=== PATIENT | female | born 1945 | race Caucasian/White ===

== ENCOUNTER 2020-01-08 18:33 | Inpatient (IN) | payer OTHER ==
[~2020-01-08] VITALS: Ht 152.4 cm; Wt 55.7 kg
[2020-01-08] MEDS ORDERED: ACET325 PO (18:45)
[2020-01-08 19:15] LABS: BASOPHILS ABSOLUTE AUTO 0.02 K/mm3 (0.00-0.23); BASOPHILS PERCENT AUTO 1 % (0-2); EOSINOPHILS PERCENT AUTO 0 % (0-6); Hematocrit 43.3 % (33.0-51.0); Hemoglobin 12.9 g/dL (11.5-16.0); IMMATURE GRAN PERCENT AUTO 0 % (0-1); LYMPHOCYTES ABSOLUTE AUTO 0.47 K/mm3 (0.84-5.20); LYMPHOCYTES PERCENT AUTO 11 % (21-46); MONOCYTES ABSOLUTE AUTO 0.51 K/mm3 (0.16-1.47); MONOCYTES PERCENT AUTO 12 % (4-13); Mean Corpuscular HGB 26.3 pg (26.0-34.0); Mean Corpuscular HGB Conc 29.8 g/dL (31.5-36.5); Mean Corpuscular Volume 88 fL (80-100); Mean Platelet Volume 10.2 fL (9.1-12.4); NEUTROPHILS ABSOLUTE AUTO 3.13 K/mm3 (1.96-9.15); NEUTROPHILS PERCENT AUTO 76 % (41-73); Platelet Count 169 K/mm3 (150-400); RDW Coefficient Variation 15.9 % (11.7-14.2); RDW Standard Deviation 51.9 fL (35.1-46.3); Red Blood Cell Count 4.91 M/mm3 (3.80-5.20); White Blood Cell Count 4.13 K/mm3 (4.00-11.30)
[2020-01-08 19:50] LABS: Alanine Aminotransfer (ALT/SGP 18 U/L (12-78); Albumin, Blood 3.1 g/dL (3.4-5.0); Albumin/Globulin Ratio 0.9 (0.8-1.8); Alk Phos 87 U/L (50-136); Anion Gap 5 mmol/L (6-16); Aspartate Aminotrans (AST/SGOT 21 U/L (12-37); Bilirubin, Total 0.4 mg/dL (0.1-1.0); Blood Urea Nitrogen 21 mg/dL (8-24); Bun/Creatinine Ratio 33.1 (12.0-20.0); CO2, Blood 26 mmol/L (21-32); Calcium, Blood 8.7 mg/dL (8.5-10.1); Chloride, Blood 105 mmol/L (98-108); Creatinine, Blood 0.63 mg/dL (0.40-1.00); Free Thyroxine 0.94 ng/dL (0.70-1.60); Globulin, Blood 3.6 g/dL (2.2-4.0); Glomerular Filtration Rate >60 (60-); Glucose, Blood 134 mg/dL (70-99); Potassium, Blood 3.8 mmol/L (3.5-5.5); Sodium, Blood 136 mmol/L (136-145); Total Protein, Blood 6.7 g/dL (6.4-8.2)
--- NOTE | 2020-01-09 04:12 | NUR ---
SHIFT SUMMARY ADMITTED FOR FACIAL CELLULITS (LEFT SIDE), ALSO HAS A THYROID GOITER. DNR CODE. REGULAR DIET, 1 ASSIST TO BATHROOM, 2 LPM O2 HERE SHE WAS DESATURATING W/AMBULATION, RA AT HOME, SHE USES A FWW AT HOME. SHE WILL SEE CONSULT DR EVANS FOR THE GOITER OUTPT. HERE SHE WILL RECEIVE IV ANTIBIOTICS FOR THE CELLULITIS. SHE IS FROM [facility]. SHE TALKS VERY FAST BUT APPEARS TO BE ORIENTED. HX: SHORT TERM MEMORY LOSS, MEDIASTINAL MASS, SINUSITIS, NON-HODGKINS LYMPHOMA, MITRAL VALVE PROLAPSE. SHE REPORTS SHE IS DRAINING FROM HER LEFT EAR SINCE YESTERDAY.
--- NOTE | 2020-01-09 17:44 | NUR ---
a+o, asphasic/difficult speech, worried about male nurse assessing her so had foot specialist assist, red spots noted and reported to hospitalist, l side of face swollen and painful (hair more than face/skin), easily startled, sba to bathroom to help manage iv hoses, call light in reach, bed in low position rm air, lc infusing at 125, abx also infusing
--- NOTE | 2020-01-10 04:45 | NUR ---
SHIFT SUMMARY PATIENT'S FACE ON THE LEFT SIDE IS VERY SWOLLEN, IS UNABLE TO OPEN HER LEFT EYE. PATIENT WAS ABLE TO SLEEP MOST OF THE NIGHT ASIDE FROM WHEN SHE GOT UP TO THE BATHROOM. IV PATENT AND FLUSHED. BED IN LOWEST POSITION WITH WHEELS LOCKED. CALL LIGHT WITHIN REACH. REPORT GIVEN TO ONCOMING RN.
--- NOTE | 2020-01-10 06:23 | NUR ---
PHYSICIAN COMMUNICATION CONTACTED THE WELDER PLASTIC PHYSICIAN, DR NEVAREZ, TO ASK OF THE PATIENT TO HAVE AN ORDER FOR A 250 ML KVO BAG OF NS TO FLUSH HER IV ANTIBIOTICS. DR NEVAREZ SAID YES TO THE ORDER.
--- NOTE | 2020-01-10 16:34 | NUR ---
SHIFT SUMMARY PT FACIAL SWELLING HAS GONE DOWN THROUGHOUT THIS SHIFT. PT TOLERATING LYING ON HER R SIDE TO HELP WITH SWELLING. PT AMBULATING TO BATHROOM WITH MINIMAL ASSIST. NEW IV PLACED TO RFA. NO OTHER ACUTE CHANGES IN ASSESSMENT AT THIS TIME. INTERMITTEN FEVER TREATED WITH TYLENOL. SENA AT [facility] UPDATED ON PT CONDITION. WILL CONTINUE TO MONITOR UNTIL TURNOVER IS COMPLETE.
--- NOTE | 2020-01-11 05:42 | NUR ---
SHIFT SUMMARY PATIENT ALERT AND ORIENTED OVERNIGHT. ALTHOUGH HARD TO UNDERSTAND WITH HER GARBLED SPEECH. SHE IS ABLE TO MAKE HER NEEDS KNOWN. PATIENT ENCOURAGED TO SLEEP ON HER RIGHT SIDE TO HELP REDUCE FLUID ACCUMULATION AROUND HER LEFT EYE, WHICH HAS BEEN EFFECTIVE. IV PATENT AND FLUSHED. BED IN LOWEST POSITION WITH WHEELS LOCKED AND ALARM ON. CALL LIGHT WITHIN REACH. REPORT GIVEN TO ONCOMING RN.
--- NOTE | 2020-01-11 15:53 | NUR ---
REPORT GIVEN TO DASH GR WHO ASSUMED CARE AT ABOUT 1500. SHIFT SUMMARY PT AXO, PLEASANT AND COOPERATIVE WITH CARE THOUGH DIFFUCULT TO DISCERN SPEECH AT TIMES. IV ACCESS LOST X2 THIS MORNING AND ANTIBIOTIC LATE THEN RETIMED, SEE NOV. IV PATENT AND SALINE LOCKED AT THIS TIME. PT DENIES PAIN, SOB AND N/V. BED IN LOW POSITION, CALL LIGHT WITHIN REACH.
--- NOTE | 2020-01-11 17:29 | NUR ---
SHIFT SUMMARY PICTURES TAKEN OF PATIENTS FACE AND L EAR/NECK TO HELP WITH COMPARRISONS OF SWELLING AND ABCESS. NO ACUTE CHANGES FROM PREVIOUS RNS ASSESSMENT. VSS. TYLENOL GIVEN TO ASSIST WITH PTS DISCOMFORT AND SWELLING. WILL CONTINUE TO MONITOR UNTIL TURNOVER IS COMPLETE.
--- NOTE | 2020-01-11 19:48 | NUR ---
ASSUMED CARE OF THE PATIENT. CRUZ IS AOX3 WITH A SLIGHT MENTAL DELAY. SHE IS ABLE TO ANSWER QUESITONS WITH NO PROBLEMS. SPEECH IS GARBLED AT TIMES AND DIFFICULT TO UNDERSTAND. ABLE TO GET 70% OF WHAT SHE IS TRYING TO SAY. SOMETIMES SHE JUST REPEATS THINGS. LEFT SIDE OF FACE SWELLING, RED, WITH LESIONS ACROSS HER CHEEK, AROUND HER EAR, DOWN HER NECK AND ON THE FRONT OF THE NECK. LESIONS YELLOW AND SOME APPEAR OPEN AROUND THE EAR. LEFT EAR IS DRAINING YELLOW FLUID. RASH WITH RED RAISED BLISTERS ALL OVER THE BODY, NON-ITCHY, NON-PAINFUL. STATES SHE CAN SWALLOW OK, NO DIFFICULTY IN BREATHING. ABLE TO EAT OK. ANTIBOTICS STARTED. MED GIVEN IN APPLESAUCE. ATTENDS DRY. CALL LIGHT IN REACH.
--- NOTE | 2020-01-11 21:40 | NUR ---
IV SL. REPOSITIONED UP IN BED. WATER GIVEN. DENIED NEED TO GO TO THE BATHROOM. CALL LIGHT GIVEN BED ALARM ON.
--- NOTE | 2020-01-12 00:39 | NUR ---
ASSISTED TO THE BATHROOM, SBA WITH WALKER. 1 UNMEASURED VOID. CHANGED ATTENDS DUE TO SLIGHTLY WET. RASH EVEN ON BOTTOM AND INNER THIGH AREA. ASSISTED BACK IN BED. NO NEEDS NOTED. CALL LIGHT GIVEN. BED ALARM ON
--- NOTE | 2020-01-12 00:51 | NUR ---
RETURNED CALL TO PIETER AT [facility] WHO IS ONE OF THE CARETAKERS. CRUZ GAVE PERMISSION TO SPEAK TO HER. GAVE UPDATE ON CRUZ'S PROGNOSIS. PIETER SAID SHE CAN'T WAIT FOR HER TO GET BACK.
--- NOTE | 2020-01-12 03:42 | NUR ---
LAB IN THE ROOM WITH THE PATIENT.
[2020-01-12 04:34] LABS: Hematocrit 41.2 % (33.0-51.0); Hemoglobin 12.9 g/dL (11.5-16.0); Mean Corpuscular HGB 26.4 pg (26.0-34.0); Mean Corpuscular HGB Conc 31.3 g/dL (31.5-36.5); Mean Platelet Volume 11.2 fL (9.1-12.4); Platelet Count 149 K/mm3 (150-400); RDW Coefficient Variation 15.5 % (11.7-14.2); RDW Standard Deviation 47.8 fL (35.1-46.3); Red Blood Cell Count 4.89 M/mm3 (3.80-5.20); White Blood Cell Count 4.83 K/mm3 (4.00-11.30)
[2020-01-12 04:36] LABS: Mean Corpuscular Volume 84 fL (80-100)
[2020-01-12 04:53] LABS: Anion Gap 6 mmol/L (6-16); Blood Urea Nitrogen 14 mg/dL (8-24); Bun/Creatinine Ratio 24.2 (12.0-20.0); CO2, Blood 31 mmol/L (21-32); Chloride, Blood 97 mmol/L (98-108); Creatinine, Blood 0.58 mg/dL (0.40-1.00); Glomerular Filtration Rate >60 (60-); Glucose, Blood 84 mg/dL (70-99); Potassium, Blood 3.1 mmol/L (3.5-5.5); Sodium, Blood 134 mmol/L (136-145)
[2020-01-12 05:24] LABS: BASOPHILS PERCENT MAN 0 % (0-2); EOSINOPHILS ABSOLUTE MAN 0.09 K/mm3 (0.00-0.68); EOSINOPHILS PERCENT MAN 2 % (0-6); LYMPHOCYTES ABSOLUTE MAN 0.86 K/mm3 (0.84-5.20); LYMPHOCYTES PERCENT MAN 18 % (21-46); MONOCYTES ABSOLUTE MAN 0.48 K/mm3 (0.16-1.47); MONOCYTES PERCENT MAN 10 % (4-13); NEUTROPHILS ABSOLUTE MAN 3.38 K/mm3 (1.96-9.15); SEG NEUTROPHILS PERCENT MAN 70 % (41-73); TOTAL CELLS COUNTED 100
--- NOTE | 2020-01-12 05:24 | NUR ---
SHIFT SUMMARY: CRUZ HAS BEEN STABLE THROUGHOUT THE NIGHT. LESIONS TO LEFT SIDE OF FACE/NECK/EAR IS UNCHANGED. RASH IS STILL PRESENT TO ENTIRE BODY WITH RED/WHITE BUMPS. LESIONS ARE SLIGHTLY OPEN BUT NO DRAINAGE. SWELLING STILL PRESENT IN LEFT SIDE OF FACE AND EAR. EAR DRAINING YELLOW FLUID. DENIES SOB, DIFFICULTY SWALLOWING. ABLE TO GET UP WITH SBA AND WALKER TO THE BATHROOM. IV REMAINED PATENT. MEDS PER EMAR. STAPLETON AT [facility] UPDATED ON STATUS, PER CRUZ'S REQUEST. VS STABLE, FEBRILE MILD AT 99. NO OTHER ACUTE CHANGES THIS SHIFT. WILL CONTINUE TO MONITOR TILL SHIFT CHANGE. CALL LIGHT IN REACH, BED ALARM ON.
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
--- NOTE | 2020-01-12 18:49 | NUR ---
SHIFT SUMMARY PT 1 PERSON ASSIST TO THE BATHROOM. R INNER THIGH WITH REDNESS AND SWELLING AND TENDERNESS TO TOUCH. NO DRAINAGE AT THIS TIME. DR. HERNÁNDEZ IN TO SEE PT THIS MORNING AND STATED HE FELT TREATING IT WITH ANTIBIOTICS SHOULD BE ENOUGH FOR NOW. PT SLEEPING ON AND OFF MOST OF THE DAY.
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
[2020-01-13 07:19] LABS: Anion Gap 5 mmol/L (6-16); Blood Urea Nitrogen 12 mg/dL (8-24); Bun/Creatinine Ratio 20.7 (12.0-20.0); CO2, Blood 32 mmol/L (21-32); Calcium, Blood 8.2 mg/dL (8.5-10.1); Chloride, Blood 101 mmol/L (98-108); Creatinine, Blood 0.58 mg/dL (0.40-1.00); Glomerular Filtration Rate >60 (60-); Glucose, Blood 99 mg/dL (70-99); Magnesium, Blood 1.8 mg/dL (1.6-2.4); Potassium, Blood 3.6 mmol/L (3.5-5.5); Sodium, Blood 138 mmol/L (136-145)
--- NOTE | 2020-01-13 16:23 | NUR ---
SHIFT SUMMARY PATIENT DENIES PAIN, NAUSEA, AND SHORTNESS OF BREATH. PATIENT UP SBA TO BATHROOM. BLOOD AND WOUND CULTURES TAKEN TODAY. POWERGLIDE DRESSING CHANGED. CT OF FACE AND NECK DONE TODAY. PATIENT RESTING AND WATCHING TV THIS SHIFT. UP ON SIDE OF BED FOR MEALS. CALL LIGHT IN REACH.
--- NOTE | 2020-01-13 16:35 | NUR ---
Spiritual care note: Julieta's speech was more difficult to understand today. She appeared tired and told me she misses being around her friends. I provided companionship and conversation. Assured Julieta of excellent care and attention. I will remain available.
--- NOTE | 2020-01-14 04:03 | NUR ---
SHIFT SUMMARY PATIENT HAD NO ACUTE CHANGES OBSERVED. AIRBORNE PRECAUTIONS. AXOX 2 WITH CONFUSION AND GARBLED SPEECH. ONE ASSIST WITH FWW TO BR. VSS/AFEBRILE. POWERGLIDE HANNA INTACT. IV ABX'S INFUSED. DENIES PAIN, SOB, AND N/V. CALL LIGHT IN REACH. BED IN LOWEST POSITION. WILL CONTINUE TO MONITOR UNTIL DAY SHIFT NURSE ASSUMES CARE.
--- NOTE | 2020-01-14 17:34 | NUR ---
SHIFT SUMMARY. A&OX2-3, INTERMITTENT CONFUSION, SPEECH DIFFICULT TO UNDERSTAND AT TIMES. SBA TO BATHROOM WITH FWW. BED ALARM UTILIZED FOR SAFETY, PT USED CALL LIGHT APPROPRIATLY THIS SHIFT. PT DENIES PAIN, SOB, N/V. OPEN LESIONS TO EAR AND BEHIND L EAR CLEANSED WITH WOUND CLEANSER, PT HAIR WASHED BY TAN ROOM SUPERVISOR DRAINAGE FROM LESION WAS MODERATE. NO NEW CHANGES OR CONCERNS.
--- NOTE | 2020-01-15 04:02 | NUR ---
SHIFT SUMMARY A/O, ABLE TO MAKE NEEDS KNOWN. SPEECH IMPAIRED WITH GARBLED FAST PACED SENTENCEDS; DIFFICULT TO UNDERSTAND AT TIMES. CALLS AND ANSWERS QUESTIONS APPROPRIATELY. NO C/O PAIN/DISCOMFORT. SCABS APPEAR TO BE CRUSTING OVER ON L FACE/NECK. 1P ASSIST /c FWW TO BATHROOM; GAIT SLOW YET STEADY. VSS A LITTLE TACHYCARDIC. NO OTHER ACUTE CHANGES NOTED. BED REMAINS IN LOWEST POSITION. CALL LIGHT AND BELONGINGS WITHIN REACH. WCTM. REPORT TO ONCOMING RN.
[2020-01-15 10:51] LABS: Creatinine, Blood 0.61 mg/dL (0.40-1.00); Vancomycin, Trough 5.1 ug/mL (5.0-10.0)
--- NOTE | 2020-01-15 18:35 | NUR ---
SHIFT SUMMARY. PT DENIES PAIN, SOB, N/V. VSS. PT CONTINUES WITH LESION BEHIND LEFT EAR THAT HAS BEEN DRAINING, DRAINAGE HAS DECREASED WHEN COMPARED TO YESTERDAY. CHARLES ROWE NOTIFIED OF PT'S DISCHARGE ORERS AND UPDATED ON STATUS. RN REPORTED THAT PT SHARES A SMALL ROOM WITH ANOTHER RESIDENT AND IS AFRAID PT SPREADING INFECTION. DR. SALGADO NOTIFIED AND DISCHARGE HELD. LESION CLEANSED WITH WOUND CLEANSER ONCE THIS SHIFT. NO OTHER CHANGES OR CONCERNS.
[2020-01-16 09:23] LABS: Vancomycin, Trough 16.3 ug/mL (5.0-10.0)
--- NOTE | 2020-01-16 15:45 | NUR ---
PT IS A/OX3, PLEASANT AND COOPERATIVE, DIFFIUCULT TO UNDERSTAND AT TIMES, THE PT DENIES HAVING ANY PAIN , THE PT HAS SEVERE SHINGLES LESSIONS ALONG THE LEFT SIDE OF HER FACE, SOME SCABBED OVER AND LEAKING MATTED INTO HER HAIR, THE PT APPEARS TO BE BREATHING EASILY ON RA, PT IS IN A REVERSE PRESSURE ROOM, THE PT IS UP WITH MINIMAL ASSIST TO THE BATHROOM, CALL LIGHT IN REACH, WILL CONTINUE TO MONITOR AND ASSESS FOR CHANGES
--- NOTE | 2020-01-17 05:39 | NUR ---
SHIFT SUMMARY PT HAS HAD NO ACUTE CHANGES THIS SHIFT, NO C/O ANY KIND, PLEASANT & COOPERATIVE W/CARE, PT SLEEPING AT THIS TIME, CALL LIGHT IN REACH, BED ALARM ACTIVE, WILL CONT TO MONITOR UNTIL REPORT GIVEN TO DAY RN,
--- NOTE | 2020-01-17 16:57 | NUR ---
SHIFT SUMMARY- PT IS ALERT AND ORIENTED. SHE HAS SOME COGNITIVE DELAYS AND IS SOMETIMES SLOW TO RESPOND. SHE HAS HAD TWO LARGE BM THIS SHIFT. SHE IS EATING AND DRINKING WELL. SHE HAS WOUNDS ON HER FACE AND THE BACK OF HER HEAD FROM THE SHINGLES, SHE REPORTS NO ASSOCIATED PAIN.
--- NOTE | 2020-01-18 05:42 | NUR ---
SHIFT SUMMARY PT IS A 74 Y/O FEMALE, ADMITTED FOR FACIAL CELLULITIS, POSITIVE FOR SHINGLES. PT IS A&O X 2, WITH A HX OF COGNITIVE DELAY, AND A 1PA TO THE BATHROOM WITH FWW. NO COMPLAINTS OF PAIN, NAUSEA OR SOB. VITAL SIGNS STABLE. NO ACUTE CHANGES IN PT CONDITION NOTED. WILL CONTINUE TO MONITOR AND TREAT PER EMAR UNTIL HAND OFF TO DAY SHIFT RN.
--- NOTE | 2020-01-18 18:46 | NUR ---
01/18/20 lesions greatly inproved but still liquid drainage unsafe to go to facility
--- NOTE | 2020-01-19 07:59 | NUR ---
SHIFT SUMMARY AOX4. ANSWERS QUESTIONS APPROPRIATELY. FOLLOWS DIRECTIONS. HARD TO UNDERSTAND SPEECH @TIMES. DENIES N/V, DYSPNEA, OR PAIN. ALTHOUGH PT DOES GRIMACE WHEN L EAR OR L SIDE OF FACE IS TOUCHED. LESIONS BEHIND L EAR ARE STILL MODERATELY WEEPING. HAS BEEN CONTINENT OF URINE T/O NIGHT. CALL LIGHT IN REACH.
--- NOTE | 2020-01-19 17:13 | NUR ---
NO ACUTE CHANGES TO PT. CALL LIGHT WITHIN REACH.
--- NOTE | 2020-01-20 04:47 | NUR ---
SHIFT SUMMARY NO ACUTE CHANGES THIS SHIFT. AOX4. VSS. DENIES PAIN, N/V OR DYSPNEA. LESIONS BEHIND L EAR ARE STILL WEEPING SLIGHTLY, L FACIAL LESIONS ARE SCABBED OVER. HAS BEEN CONTINENT T/O NIGHT. CALL LIGHT IN REACH. WCTM.
--- NOTE | 2020-01-20 18:17 | NUR ---
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 HER EAR APPEARS TO BE CRUSTING OVER THOUGH SOME FLUID REMAINS . SHE IS ALERT AND ABLE TO EXPRESS NEEDS. PT HAS BEEN AMBULATING TO RESTROOM WITH SBA. NO COMPLAINTS THIS SHIFT.
--- NOTE | 2020-01-21 05:48 | NUR ---
SHIFT SUMMARY: VSS. PULSE REMAINS ELEVATED AT BASELINE. 02 95-96% ON RA. A/OX3. COMMUNICATES NEEDS. T/F W/ SBA AND FWW TO THE BATHROOM. CONTINENT OF URINE TONIGHT. PLEASANT AND COOPERATIVE. LEFT EAR AND SURROUNDING TISSUE W/SCABS INTACT. SCATTERED SMALL SCABS ON BACK AND BUTTOCKS. PT DENIES PAIN. NO ACUTE CHANGES TONIGHT. WILL CONT TO MONITOR.
--- NOTE | 2020-01-21 18:28 | NUR ---
SHIFT SUMMARY- PT IS A/O, PLESANT AND COOPERATIVE. SHE HAS SOME PRESSURED SPEECH, AND DEVELOPMENTAL DELAYS. SHE IS SB ASSIST TO THE RESTROOM. SHE IS EATING AND DRINKING WELL. SHE DENIES ANY PAIN IN THE AFFECTED AREA.
--- NOTE | 2020-01-22 05:59 | NUR ---
SHIFT SUMMARY PT HAD NO C/O ANY KIND THIS SHIFT, MEDICATED 1X FOR TEMP 100.8, AT REASSESSMENT WAS 99.4, PT IS AFEBRILE THIS AM (98.8), PT BEDRESTING AT THIS TIME, CALL LIGHT IN REACH, ALL NEEDS MET, WILL CONT TO MONITOR UNTIL REPORT GIVEN TO DAY RN.
[2020-01-22] MEDS ORDERED: ACYC400 PO (10:59)
[2020-01-22] MEDS ORDERED: BENADRYL25 MG PO (11:00)
[2020-01-22] MEDS ORDERED: VISBIOME 112.51 EACH PO (11:06)
[2020-01-22] MEDS ORDERED: Loratadine10 MG PO (11:07)
--- NOTE | 2020-01-22 14:29 | NUR ---
PT DISCHARGED FROM THE UNIT AT 1200. SHE LEFT WITH TRANSPORT VIA WHEELCHAIR WITH TRANSPORT. DISCHARGE INSTRUCTIONS REVIEWED. REPORT CALLED TO NURSE AT [facility]. MEDICATIONS FAXED.
== END 2020-01-22 12:05 | disposition home or self-care (01) | DRG 603 ==
LOC: ER 18:33 → MEDS 18:34 → ENPENDDIS 01-22 09:50 → MEDS 01-22 12:05
PROVIDERS: Internal Medicine; Pharmacist; Pharmacist Pharmacotherapy; Physician Assistant; ADMIT Internal Medicine
DX: L03.211 Cellulitis of face (principal); B00.9 Herpesviral infection, unspecified; E04.0 Nontoxic diffuse goiter; L08.0 Pyoderma; F89 Unspecified disorder of psychological development; Z66 Do not resuscitate; Z85.71 Personal history of Hodgkin lymphoma
CPT/HCPCS: 36415; 70487; 70491; 80048; 80053; 80202; 82565; 83735; 84439; 84443; 85025; 86694; 87040; 87070; 87077; 87081; 87186; 87205; 96361; 96365; 96366; 96372; 96376; 99284-25; A9270; G0378; J0133; J1650; J3370; J7050; J7120; Q9967

== ENCOUNTER 2022-05-21 16:22 | Emergency (ER) | payer OTHER ==
[~2022-05-21] VITALS: Ht 152.4 cm; Wt 68.0 kg
[~2022-05-21 16:22] MED LIST: ACET325 PO; ACYC400 PO; BENADRYL25 MG PO; Loratadine10 MG PO; VISBIOME 112.51 EACH PO
[2022-05-21] MEDS ORDERED: METOPROLOL TART25 MG PO (18:35)
[2022-05-21 18:46] LABS: BASOPHILS ABSOLUTE AUTO 0.03 K/mm3 (0.00-0.23); BASOPHILS PERCENT AUTO 0 % (0-2); EOSINOPHILS ABSOLUTE AUTO 0.16 K/mm3 (0.00-0.68); EOSINOPHILS PERCENT AUTO 2 % (0-6); Hematocrit 41.7 % (33.0-51.0); IMMATURE GRAN ABSOLUTE AUTO 0.05 K/mm3 (0.00-0.10); IMMATURE GRAN PERCENT AUTO 1 % (0-1); LYMPHOCYTES ABSOLUTE AUTO 1.02 K/mm3 (0.84-5.20); LYMPHOCYTES PERCENT AUTO 11 % (21-46); MONOCYTES ABSOLUTE AUTO 0.99 K/mm3 (0.16-1.47); MONOCYTES PERCENT AUTO 11 % (4-13); Mean Corpuscular HGB Conc 31.2 g/dL (31.5-36.5); Mean Corpuscular Volume 90 fL (80-100); Mean Platelet Volume 10.4 fL (9.1-12.4); NEUTROPHILS ABSOLUTE AUTO 7.09 K/mm3 (1.96-9.15); NEUTROPHILS PERCENT AUTO 76 % (41-73); Platelet Count 195 K/mm3 (150-400); RDW Coefficient Variation 14.6 % (11.7-14.2); RDW Standard Deviation 48.6 fL (35.1-46.3); Red Blood Cell Count 4.64 M/mm3 (3.80-5.20); White Blood Cell Count 9.34 K/mm3 (4.00-11.30)
[2022-05-21 19:04] LABS: Albumin, Blood 3.6 g/dL (3.4-5.0); Albumin/Globulin Ratio 1.1 (0.8-1.8); Bilirubin, Total 0.3 mg/dL (0.1-1.0); Bun/Creatinine Ratio 43.2 (12.0-20.0); Calcium, Blood 9.4 mg/dL (8.5-10.1); Creatinine, Blood 0.63 mg/dL (0.40-1.00); Globulin, Blood 3.3 g/dL (2.2-4.0); Potassium, Blood 3.8 mmol/L (3.5-5.5); Total Protein, Blood 6.9 g/dL (6.4-8.2)
== END 2022-05-21 20:50 | disposition home or self-care (01) ==
LOC: ER 16:22
PROVIDERS: Student in an Organized Health Care Education/Training Program
DX: R60.0 Localized edema (principal); M79.605 Pain in left leg; M79.604 Pain in right leg; Z79.899 Other long term (current) drug therapy; Z88.0 Allergy status to penicillin; Z91.038 Other insect allergy status
CPT/HCPCS: 80053; 83880; 85025

== ENCOUNTER 2023-09-17 08:54 | Observation (INO) | payer OTHER ==
[~2023-09-17] VITALS: Ht 162.6 cm; Wt 55.3 kg
[~2023-09-17 08:54] MED LIST changes: +METOPROLOL TART25 MG PO
[2023-09-17 09:28] LABS: Source, Urine Straight Cath
[2023-09-17 09:31] LABS: Bilirubin, Urine Neg (Neg); Blood, Urine Neg (Neg); Glucose Qualitative, Urine Neg (Neg); Ketones, Urine Neg (Neg); Leukocyte Esterase, Urine 3+ (Neg); Nitrite, Urine Neg (Neg); Protein, Urine Neg (Neg); Urobilinogen, Urine NORM (Normal)
[2023-09-17 09:32] LABS: BASOPHILS ABSOLUTE AUTO 0.05 K/mm3 (0.00-0.23); BASOPHILS PERCENT AUTO 1 % (0-2); EOSINOPHILS ABSOLUTE AUTO 0.28 K/mm3 (0.00-0.68); EOSINOPHILS PERCENT AUTO 3 % (0-6); Hematocrit 21.2 % (33.0-51.0); Hemoglobin 6.1 g/dL (11.5-16.0); IMMATURE GRAN ABSOLUTE AUTO 0.04 K/mm3 (0.00-0.10); IMMATURE GRAN PERCENT AUTO 0 % (0-1); LYMPHOCYTES ABSOLUTE AUTO 2.44 K/mm3 (0.84-5.20); LYMPHOCYTES PERCENT AUTO 22 % (21-46); MONOCYTES ABSOLUTE AUTO 1.03 K/mm3 (0.16-1.47); MONOCYTES PERCENT AUTO 9 % (4-13); Mean Corpuscular HGB 21.2 pg (26.0-34.0); Mean Corpuscular HGB Conc 28.8 g/dL (31.5-36.5); Mean Corpuscular Volume 74 fL (80-100); Mean Platelet Volume 10.5 fL (9.1-12.4); NEUTROPHILS ABSOLUTE AUTO 7.11 K/mm3 (1.96-9.15); NEUTROPHILS PERCENT AUTO 65 % (41-73); Platelet Count 320 K/mm3 (150-400); RDW Coefficient Variation 16.5 % (11.7-14.2); RDW Standard Deviation 44.3 fL (35.1-46.3); Red Blood Cell Count 2.88 M/mm3 (3.80-5.20); White Blood Cell Count 10.95 K/mm3 (4.00-11.30)
[2023-09-17 09:53] LABS: Appearance, Urine Hazy (Clear); Bacteria Rare /hpf; Color, Urine Yellow (P-Yellow); Red Blood Cells, Urine Not Seen /hpf (0-2); Squamous Epithelial Cells Rare /hpf (Few)
[2023-09-17 09:55] LABS: Bun/Creatinine Ratio 23.9 (12.0-20.0); Creatinine, Blood 1.38 mg/dL (0.40-1.00); Potassium, Blood 4.3 mmol/L (3.5-5.5)
[2023-09-17] MEDS ORDERED: BUME1 PO (11:28)
[2023-09-17] MEDS ORDERED: Flonase 0.05% N16 GM (11:29)
[2023-09-17] MEDS ORDERED: ZYRTEC10 M2 PO (11:29)
[2023-09-17] MEDS ORDERED: DIPH50 PO (11:29)
[2023-09-17] MEDS ORDERED: PIRO20 PO (11:30)
[2023-09-17] MEDS ORDERED: KAPSPARGO SPRIN25 MG PO (11:30)
[2023-09-17] MEDS ORDERED: HYDCOR2.5C PR (11:30)
[2023-09-17] MEDS ORDERED: LOPE2C PO (11:31)
[2023-09-17] MEDS ORDERED: BENZ100A PO (11:31)
[2023-09-17] MEDS ORDERED: ONDA4 PO (11:32)
[2023-09-17 14:02] LABS: IMMATURE RETIC FRACTION 16.1 % (2.3-16.0); RETIC HGB EQUIVALENT 15.5 pg (28.20-36.60); RETICULOCYTE COUNT PERCENT 1.53 % (0.50-2.50)
[2023-09-17 14:04] LABS: RETICULOCYTE ABSOLUTE 0.0441 M/mm3 (0.0200-0.1100)
[2023-09-17 15:43] LABS: Hematocrit 22.2 % (33.0-51.0); Hemoglobin 6.7 g/dL (11.5-16.0)
[2023-09-17 16:50] VITALS: BP 114/67
[2023-09-17 17:31] VITALS: BP 116/67
[2023-09-17 18:04] VITALS: BP 126/79
--- NOTE | 2023-09-17 18:39 | NUR ---
1630 TRANSFER TO MEDICAL FLOOR- PT ARRIVED ON UNIT FROM ER AFTER RECEIVING REPORT FROM PLASTIC SURGEON BRIAN SOUSA.
--- NOTE | 2023-09-17 18:40 | NUR ---
SUMMARY- NO COMPLAINTS SINCE ADMISSION. PT CURRENTLY RECEIVING 2ND UNIT OF BLOOD. PT UNABLE TO ANSWER ALL ORIENTATION QUESTIONS. SBA TO BATHROOM.
[2023-09-17 18:57] VITALS: BP 110/56
[2023-09-17 21:21] VITALS: BP 135/71
[2023-09-17 21:55] LABS: Hematocrit 25.5 % (33.0-51.0); Hemoglobin 7.8 g/dL (11.5-16.0)
[2023-09-17 22:35] LABS: International Normalized Ratio 0.98; Prothrombin Time Results 10.3 Sec (9.7-11.5)
--- NOTE | 2023-09-17 22:47 | NUR ---
UNIT OFPRBC INFUSED EARLIER, LINE FLUSHED. AWAITING FOLLOW UP CBC. CALL LIGHT IN REACH.
[2023-09-18 02:29] VITALS: BP 122/67
--- NOTE | 2023-09-18 03:20 | NUR ---
PIZZA DRIVER SUMMARY VSS. RECEIVED ONE UNIT OF PRBC PER MD ORDERS. FOLLOW UP CBC HGB 7.8. A/O X 2-3. SLOW TO ANSWER QUESTIONS. REMAINS PALE SKIN COLOR. UP WITH WALKER AND ASSIST. HAS BEEN RESTING QUIETLY WITH FEW INTERRUPTIONS. CALL LIGHT IN REACH. RAILS UP X 2 FOR SAFETY. WILL CONTINUE TO MONITOR
[2023-09-18 06:51] LABS: Hematocrit 25.8 % (33.0-51.0); Hemoglobin 7.9 g/dL (11.5-16.0)
[2023-09-18 07:09] LABS: Bun/Creatinine Ratio 20.5 (12.0-20.0); Calcium, Blood 8.8 mg/dL (8.5-10.1); Creatinine, Blood 1.22 mg/dL (0.40-1.00); Potassium, Blood 4.4 mmol/L (3.5-5.5)
[2023-09-18 07:55] VITALS: BP 127/59
[2023-09-18 11:42] LABS: Hematocrit 27.8 % (33.0-51.0); Hemoglobin 8.4 g/dL (11.5-16.0)
[2023-09-18 12:00] LABS: Bilirubin, Total 0.7 mg/dL (0.1-1.0)
[2023-09-18 15:25] VITALS: BP 108/68
--- NOTE | 2023-09-18 16:16 | NUR ---
PT IS ALERT AND ORIENTED X2-3. IT IS DIFFICULT TO DETERMINE MENTATION HER WORDS ARE MUMMBLED AND DIFFICULT TO UNDERSTAND. SHE IS ABLE TO GESTURE TOWARDS HER NEEDS. SBA TO THE BATHROOM. NO BM. CONT OF URINE. SWALLOW EVAL COMPLETED TODAY. DIET CHANGED TO PUREE. LAURO CALLED TO INFORM THAT SHE WOULD NOT BE ABLE TO COME BACK TO FACILITY UNTIL TOMORROW. PT IS ABLE TO MAKE NEEDS KNOWN. BED ALARM FOR SAFETY HOWEVER PT HAS NOT TRIED TO GET OUT OF BED WITH OUT CALLING. CALLS APPROPRIATELY.
[2023-09-18 20:14] VITALS: BP 130/69
[2023-09-19 03:07] VITALS: BP 128/68
--- NOTE | 2023-09-19 04:21 | NUR ---
SCIENTIST IMMUNOLOGY SUMMARY VSS. HGB 8.4. ALERT TO STAFF INTERACTIONS BUT COMMUNICATION REMAINS ONE TO TWO WORDS. UP WITH ASSIST TO BEDSIDE COMMODE. CONTINENT. RESPS SHALLOW BUT EVEN. HAS BEEN RESTING QUIETLY WITH FEW INTERRUPTIONS. CALL LIGHT IN REACH. RAILS UP X 2 FOR SAFETY. WILL CONTINUE TO MONITOR
[2023-09-19 05:44] LABS: BASOPHILS ABSOLUTE AUTO 0.06 K/mm3 (0.00-0.23); BASOPHILS PERCENT AUTO 1 % (0-2); EOSINOPHILS ABSOLUTE AUTO 0.34 K/mm3 (0.00-0.68); EOSINOPHILS PERCENT AUTO 4 % (0-6); Hematocrit 26.7 % (33.0-51.0); Hemoglobin 7.9 g/dL (11.5-16.0); IMMATURE GRAN ABSOLUTE AUTO 0.04 K/mm3 (0.00-0.10); IMMATURE GRAN PERCENT AUTO 0 % (0-1); LYMPHOCYTES ABSOLUTE AUTO 2.02 K/mm3 (0.84-5.20); LYMPHOCYTES PERCENT AUTO 21 % (21-46); MONOCYTES PERCENT AUTO 13 % (4-13); Mean Corpuscular HGB 22.4 pg (26.0-34.0); Mean Corpuscular HGB Conc 29.6 g/dL (31.5-36.5); Mean Corpuscular Volume 76 fL (80-100); Mean Platelet Volume 9.8 fL (9.1-12.4); NEUTROPHILS ABSOLUTE AUTO 5.99 K/mm3 (1.96-9.15); NEUTROPHILS PERCENT AUTO 62 % (41-73); Platelet Count 268 K/mm3 (150-400); RDW Coefficient Variation 17.4 % (11.7-14.2); RDW Standard Deviation 47.1 fL (35.1-46.3); Red Blood Cell Count 3.53 M/mm3 (3.80-5.20); White Blood Cell Count 9.75 K/mm3 (4.00-11.30)
[2023-09-19 06:16] LABS: Bun/Creatinine Ratio 20.8 (12.0-20.0); Calcium, Blood 8.7 mg/dL (8.5-10.1); Creatinine, Blood 1.06 mg/dL (0.40-1.00); Potassium, Blood 4.5 mmol/L (3.5-5.5)
[2023-09-19 07:35] VITALS: BP 113/56
--- NOTE | 2023-09-19 14:14 | NUR ---
DISCHARGE: PT D/C @1320 VIA WHEELCHAIR WITH TRANSPORT BACK TO [facility]. IV REMOVED BY FIELD REPORTER W/O COMPLICATIONS. D/C PACKET SENT WITH TRANSPORT. PT RECEIVED SHOWER PRIOR TO D/C. FACILITY CALED BY THIS RN TO GIVE UPDATE.
== END 2023-09-19 13:30 | disposition home or self-care (01) ==
LOC: ER 08:54 → ERHOLD 08:55 → MEDS 08:55
PROVIDERS: Emergency Medicine; Family Medicine; Student in an Organized Health Care Education/Training Program; ADMIT Hospitalist
DX: Z51.5 Encounter for palliative care (principal); N17.9 Acute kidney failure, unspecified; Z66 Do not resuscitate; D64.9 Anemia, unspecified; F03.90 Unspecified dementia, unspecified severity, without behavioral disturbance, psychotic disturbance, mood disturbance, and anxiety; I10 Essential (primary) hypertension; C85.90 Non-Hodgkin lymphoma, unspecified, unspecified site; Z88.0 Allergy status to penicillin; R59.1 Generalized enlarged lymph nodes
CPT/HCPCS: 36415; 36430; 74174; 74230; 80048; 81001; 82247; 82272; 82607; 82728; 82746; 83540; 83550; 83615; 85014; 85018; 85025; 85045; 85610; 86850; 86900; 86901; 86923; 87077; 87086; 87186; 92610; 92611; 93005; 93010; 96360-59; 96361; 99285-25; G0378; J7040; J7120; P9016; Q9967

== ENCOUNTER → 2023-11-21 | Outpatient (CLI) | payer OTHER ==
[~2023-11-21] MED LIST changes: +BENZ100A PO; +BUME1 PO; +DIPH50 PO; +Flonase 0.05% N16 GM; +HYDCOR2.5C PR; +KAPSPARGO SPRIN25 MG PO; +LOPE2C PO; +ONDA4 PO; +PIRO20 PO; +ZYRTEC10 M2 PO
[2023-11-21 15:48] LABS: Source, Urine Clean Catch
[2023-11-21 17:40] LABS: Appearance, Urine Cloudy (Clear); Bilirubin, Urine Neg (Neg); Blood, Urine 5+ (Neg); Color, Urine Amber (P-Yellow); Glucose Qualitative, Urine Neg (Neg); Ketones, Urine Neg (Neg); Leukocyte Esterase, Urine 3+ (Neg); Nitrite, Urine Neg (Neg); Protein, Urine 3+ (Neg); Specific Gravity, Urine 1.015 (1.003-1.022); Urobilinogen, Urine NORM (Normal)
[2023-11-21 17:49] LABS: Red Blood Cells, Urine TNTC /hpf (0-2); White Blood Cells, Urine TNTC /hpf (0-5)
[2023-11-21 17:50] LABS: Bacteria Many /hpf; Squamous Epithelial Cells Few /hpf (Few)
== END | disposition home or self-care (01) ==
LOC: LAB SHORT 15:45
PROVIDERS: Nurse Practitioner Family
DX: N39.0 Urinary tract infection, site not specified (principal)
CPT/HCPCS: 81001; 87077; 87086; 87186